=== PATIENT | male | born 1960 | race Caucasian/White ===

== ENCOUNTER → 2016-03-18 | Outpatient (CLI) | payer BC ==
--- NOTE | 2016-03-18 11:24 | MR ---
MR brain and internal auditory canals with and without contrast HISTORY: Tinnitus, acoustic nerve disorder, hearing loss Multiplanar multisequence and postcontrast images obtained through the brain following 20 cc MultiHan ce IV. Small [id number] high-resolution images were obtained through the internal auditory canals There is a focus of of cystic signal present with peripheral enhancement at the level of the eustachi an canal on the right measuring approximately 1 cm x 13 mm x 4 mm in size. The cerebellopontine angle s are unremarkable, there is no focal mass, no abnormal enhancement along the internal auditory canal . The cochlea and semicircular canals show a symmetric appearance. Extensive inflammatory changes pre sent in the maxillary sinus bilaterally, right frontal sinus, sphenoid sinus right greater than left, ethmoid air cells. The orbits show symmetric appearance. Brain signal is maintained. Corpus callosum , pituitary, cervical medullary junction are normal. No hemorrhage or hydrocephalus. IMPRESSION: Cystic focus along the eustachian canal on the right as described shows nonaggressive fea tures, consider short interval follow-up, endoscopic evaluation as indicated. Extensive sinus disease .
== END | disposition home or self-care (01) ==
LOC: RADMRIMAIN 09:58
PROVIDERS: ATTEND Otolaryngology
DX: H69.91 Unspecified Eustachian tube disorder, right ear (principal); J34.9 Unspecified disorder of nose and nasal sinuses
CPT/HCPCS: 70553; A9577

== ENCOUNTER → 2021-02-04 | Outpatient (CLI) | payer BC ==
--- NOTE | 2021-02-05 16:25 | CT ---
EXAMINATION TYPE: CT pelvis w con DATE OF EXAM: 02/04/2021 COMPARISON: None HISTORY: prostate cancer CT DLP: 834 mGycm Automated exposure control for dose reduction was used. TECHNIQUE: Helical acquisition of images from the lung bases through the pelvis have been completed. CONTRAST: Performed with Oral Contrast and with IV Contrast, patient injected with 100 mL of Isovue 300. FINDINGS: AORTA: Atheromatous changes are present within the aorta REPRODUCTIVE ORGANS: Suspect prior prostatectomy, prostate tissue not identified with certainty BOWEL: No significant abnormality is seen. FREE AIR: No Free Air visible. ASCITES: None visible. PELVIC ADENOPATHY: None visualized. RETROPERITONEAL ADENOPATHY: No Retroperitoneal Adenopathy visible. URINARY BLADDER: No significant abnormality is seen. OSSEOUS STRUCTURES: No significant abnormality is seen. IMPRESSION: POSTOP CHANGES ARE SUSPECTED.
== END | disposition home or self-care (01) ==
LOC: RADCTMAIN 10:32
PROVIDERS: ATTEND Urology
DX: C61 Malignant neoplasm of prostate (principal)
CPT/HCPCS: 72193; Q9967

== ENCOUNTER → 2024-05-30 | Outpatient (CLI) | payer MEDICARE ==
--- NOTE | 2024-05-31 08:05 | PE ---
EXAMINATION TYPE: PET CT fusion skull to thigh DATE OF EXAM: 05/30/2024 COMPARISON: NONE HISTORY: C61 prostate ca TECHNIQUE: Following the intravenous administration of 6.4 mCi of Ga-68 Illuccix, whole body images are performed from the top of head to the midthigh. Images are reviewed on the computer in the coron al, axial, and sagittal planes. Reconstructed rotating images are created on independent workstation and reviewed on the computer. A localization and attenuation correction CT is performed in conjunc tion with the PET scan. SCAN: Initial Scan FINDINGS: HEAD AND NECK: No areas of abnormal radiotracer uptake. CHEST, MEDIASTINUM, AND HILAR REGION: No areas of abnormal uptake. ABDOMEN AND PELVIS: Prostate gland is surgically absent. There are suspicious lymph nodes in the right pelvis with increased uptake. For reference there is 1. 3 x 0.7 cm posterior lymph node axial image 260. Just anterior and superior to this there is suspicio us 1.7 x 0.9 cm lymph node with increased radiotracer uptake. There is suspicious 5 to 6 mm right frances ac chain lymph node in the upper pelvis with increased uptake axial image 234. OSSEOUS STRUCTURES: No areas of suspicious uptake. OTHER CT: Mild to moderate mucosal thickening right maxillary sinus is present. Mild mucosal thickeni ng inferior left maxillary sinus. There is moderate opacification of right ethmoid sinuses. Ascending aorta measures up to 3.8 cm in diameter. Prominent right and left pulmonary arteries raise concern for underlying pulmonary artery hypertension. Significant bilateral gynecomastia is present. There is 8 mm nonobstructing calculus left kidney axial image 189. There is 3 mm nonobstructing calcu sharon right kidney axial image 200. There are small to moderate-sized fat-containing right inguinal her bandar. 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 , [facility], , 05/31/2024 8:02 AM
== END | disposition home or self-care (01) ==
LOC: RADPETMAIN 11:07
PROVIDERS: ATTEND Urology
DX: C61 Malignant neoplasm of prostate (principal); R59.0 Localized enlarged lymph nodes
CPT/HCPCS: 78815; A9596